=== PATIENT | female | born 1995 | race Caucasian/White ===

== ENCOUNTER 2023-12-02 20:15 | Outpatient (REF) | payer OTHER, SELFPAY | END 2023-12-02 20:16 | disposition home or self-care (01) | LOC: LAB 20:15 | PROVIDERS: Visit Provider Physician Assistant | DX: Z01.419 Encounter for gynecological examination (general) (routine) without abnormal findings (principal) | CPT/HCPCS: G0145 ==

== ENCOUNTER 2025-07-18 15:53 | Emergency (ER) | payer OTHER, SELFPAY ==
[2025-07-18 16:08] VITALS: BP 140/82; PULSE 87; TEMP 36.7; O2SAT 98; BMI 34.1
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
--- OUTSIDE RECORDS SUMMARY | 2025-07-18 18:11 | XMS_ITS | Clinical Summary ---
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 Ears irrigated with water and cerumen removed with speculum. Canals clear after procedure. Use debrox or drops of baby oil to prevent build up of wax in future. Do not use q-tips inside ear. Genital warts08/23/2024Family history of breast cancer in rchglw8008/23/2024 Resolved Problems ProblemNoted DateDiagnosed DateResolved DateAcute non-recurrent pansinusitis Assessment & Plan (08/23/2024 12:03 PM EST): Take antibiotics for 7 days. Use prednisone for inflammation. Use sudafed or other decongestants asneeded. Use Robitussin or Robitussin-DM for cough. Can use afrin for congestion but no longer than 3 days. Can use Mucinex to bring up phlegm. Use Motrin or Tylenol as needed for fever, aches, or pains. Increase fluid intake and rest. Should improve over next 5-7 days and if no better or worse callfor re-evaluation. Social History Tobacco UseTypesPacks/DayYears UsedDateSmoking Tobacco: NeverSmokeless Tobacco: Never Tobacco Cessation:Counseling Given: Not Answered B1300 Health LiteracyAnswerDate RecordedHow often do you need to have someone help you when you read instructions, pamphlets, or other written material from your doctor or pharmacy?Patient declines to gvbvspr4301/01/2025Social Connection and Isolation PanelAnswerDate RecordedIn a typical week, how many times do you talk on the phone with family, friends, or neighbors?Patient fftfobzt56/08/2025 How often do you get together with friends or relatives?Patient declined 01/01/2025How often do you attend holiness or protestant services?Patient declined 01/01/2025Do you belong to any clubs or organizations such as holiness groups, unions, fraMuciMed or athletic groups, or school groups?Patient declined 01/01/2025How often do you attend meetings of the clubs or organizations you belong to?Patient kxghvayx64/08/2025re you , , , , never , or living with a partner?Ogffzvd2801/01/2025UDIT-C AnswerDate RecordedQ1: How often do you have a drink containing alcohol?Patient imjppiyf55/08/2025Q2: How many drinks containing alcohol do you have on a typical day when you are drinking?Patient gaoncymy25/08/2025Q3: How often do you have six or more drinks on one occasion?Patient cykwcunu37/08/2025Overall Financial Resource Strain (CARDIA)AnswerDate RecordedHow hard is it for you to pay for the very basics like food, housing, medical care, and heating?Patient /08/2025[employer] [facility] [employer] - Occupational Stress QuestionnaireAnswerDate RecordedDo you feel stress - tense, restless, nervous, or anxious, or unable to sleep at night because yourmind is troubled all the time - these days?Patient sqpubgzy21/08/2025Exercise Vital SignAnswerDate RecordedOn average, how many days per week do you engage in moderate to strenuous exercise (like a brisk walk)?4 days01/01/2025On average, how many minutes do you engage in exercise at this level?60 min01/01/2025Hunger Vital SignAnswerDate RecordedWithin the past 12 months, you worried that your food would run out before you got the money to buymore.Patient jyiwnftt08/08/2025 Within the past 12 months, the food you bought just didn't last and you didn't have money to get more.Patient hxltlica61/08/2025PRAPARE - TransportationAnswer Date RecordedIn the past 12 months, has lack of transportation kept you from medical appointments or from getting medications?Patient xezpmxja48/08/2025In the past 12 months, has lack of transportation kept you from meetings, work, or from getting things needed for daily living?Patient kbmsqtyf45/08/2025Housing Stability Vital SignAnswerDate RecordedIn the last 12 months, was there a time when you were not able to pay the mortgage or rent on time?Patient declined 01/01/2025Number of Times Moved in the Last YearNot on file01/01/2025t any time in the past 12 months, were you homeless or living in a usp (including now)? Patient yroddujx82/08/2025CommentsUnknownSex and Gender InformationValue Date RecordedSex Assigned at BirthNot on fileLegal ChbTsxtcf41/15/2023 6:56 PM EDTGender IdentityNot on fileSexual OrientationNot on file Last Filed Vital Signs Vital SignReadingTime TakenCommentsBlood Lmceflfg005/7401/02/2025 9:19 AM EDT Pbobw095601/02/2025 9:19 AM XGYEfdfpgdkdpn06.4 ??C (97.5 ??F)01/02/2025 9:19 AM EDTRespiratory Nhey471101/02/2025 9:19 AM EDTOxygen Okazlkwzmw99%01/02/2025 9:19 AM EDTInhaled Oxygen Concentration--Biywhf15.8 kg (187 lb)01/02/2025 9:19 AM EDT Esdmor791.6 cm (5' 4 )01/02/2025 9:19 AM EDTBody Mass Index32. 9:19 AM EDT Plan of Treatment Not on file Insurance Care Teams Team MemberRelationshipSpecialtyStart DateEnd Date Jong Lo MD PCP - GeneralFancly Medicine12/02/23
--- OUTSIDE RECORDS SUMMARY | 2025-07-18 18:12 | XMS_ITS | Patient Health Record ---
Author Organization [facility] [place] Address [address] [place] [address] Care Team Providers Care Watch Repairer Name Role Phone Gio Arroyo DO Primary Care Provider Unavail able Reason For Referral No Information Medications Medication SIG (Take, Route, Frequency, Duration) Notes Start Date End Date Status Allergy ZYRTEC-LIKEActiveBiotinActive Social History Tobacco Use: Social History Observation Description Date Details (start date - stop date) Never Smoker NA - NA Tobacco Use/Smoking Question Answer Notes Patient is a nonsmoker Problems Problem Type SNOMED Code ICD Code Onset Dates Problem Status W/U Status Risk Notes Problem 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 NO LP DUE TO CHIARI. NO VISION LOSS, NO NEED TO TXMEDICALLY. Plan Of Treatment Pending Test Test Name Order Date LUMBAR PUNCTURE 05/15/2016 Insurance Providers Payer Name Payer Address Payer Phone Subscriber Number Group Number Insured Name Patient Relationship to Insured Coverage Start Date Coverage End Date [employer] ACCESS PPO PLUS LOCAL PLAN [address] [place] [address] [id number] Héctor FERRARI Child - Insured has Financial ResponsibilityHEALTHSCOPE BENEFITSPO [address] [address] [place], [place] [id number], M[place]elf - patient is the insured
[2025-07-18 19:35] VITALS: PULSE 88; O2SAT 100
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
== END 2025-07-18 19:36 | disposition home or self-care (01) ==
PROVIDERS: Emergency Provider Emergency Medicine; PCP Family Medicine
DX: M54.6 Pain in thoracic spine (principal); S13.4XXA Sprain of ligaments of cervical spine, initial encounter; V89.2XXA Person injured in unspecified motor-vehicle accident, traffic, initial encounter; M54.2 Cervicalgia
CPT/HCPCS: 71045; 72128; 76376; 99284